=== PATIENT | male | born 1970 | race Caucasian/White ===

== ENCOUNTER 2017-12-30 23:10 | Emergency (ER) | payer SELFPAY ==
[2017-12-30] MEDS: LIDOCAINE 1%/EPI 1:100,000 20 ML VIAL. INJ (00:10)
[2017-12-31 00:04] LABS: ADD MAN DIFF? NO
[2017-12-31 00:05] LABS: BASO % 0 % (0-3); EOS % 0 % (0-3); HEMATOCRIT 42.2 % (39.0-53.0); HEMOGLOBIN 14.6 g/dL (13.0-17.5); LYMPH # 2.9 x10^3/uL (1.0-4.8); LYMPH % 18 % (24-48); MEAN CORPUSCULAR HEMOGLOBIN 31 pg (25-35); MEAN CORPUSCULAR HGB CONC 35 g/dL (31-37); MEAN CORPUSCULAR VOLUME 90 fL (79-100); MONO % 6 % (0-9); NEUT # 12.4 x10^3uL (1.8-7.7); NEUT % 76 % (31-73); PLATELET COUNT 323 x10^3/uL (140-400); RED BLOOD COUNT 4.71 x10^6/uL (4.30-5.70); RED CELL DISTRIBUTION WIDTH 13.5 % (11.5-14.5); WHITE BLOOD COUNT 16.4 x10^3/uL (4.0-11.0)
[2017-12-31] MEDS: CLINDAMYCIN 900MG PREMIX 50 ML IV (00:05)
[2017-12-31] MEDS: fentaNYL PF VIAL 100 MCG/2 ML VIAL IV (00:05)
[2017-12-31 00:14] LABS: ANION GAP 9 (6-14); BLOOD UREA NITROGEN 22 mg/dL (8-26); BUN/CREATININE RATIO 18 (6-20); CALCIUM 8.8 mg/dL (8.5-10.1); CARBON DIOXIDE 29 mmol/L (21-32); CHLORIDE 100 mmol/L (98-107); CREATININE 1.2 mg/dL (0.7-1.3); GFR 65.5; GLUCOSE 118 mg/dL (70-99); POTASSIUM 3.8 mmol/L (3.5-5.1); SODIUM 138 mmol/L (136-145)
[2017-12-31 00:19] LABS: ALBUMIN 3.4 g/dL (3.4-5.0); ALBUMIN/GLOBULIN RATIO 0.8 (1.0-1.7); ALK PHOS 71 U/L (46-116); ALT (SGPT) 29 U/L (16-63); AST (SGOT) 20 U/L (15-37); TOTAL BILIRUBIN 0.5 mg/dL (0.2-1.0); TOTAL PROTEIN 7.5 g/dL (6.4-8.2)
[2017-12-31 00:22] LABS: LACTIC ACID 1.2 mmol/L (0.4-2.0)
== END 2017-12-31 00:58 | disposition home or self-care (01) ==
LOC: ER 12-31 00:58
DX: L03.113 Cellulitis of right upper limb (principal)
CPT/HCPCS: 10060; 36415; 80053; 83605; 85025; 87071; 87075; 96365; 96375; 99284-25; J3010; J3490

== ENCOUNTER 2019-08-19 10:08 | Emergency (ER) | payer SELFPAY ==
[~2019-08-19] VITALS: Ht 154.9 cm; Wt 68.6 kg
[~2019-08-19 10:08] MED LIST: CEPH-264 PO; HYDR-3164 PO; SULF1TAB24 PO
[2019-08-19] MEDS ORDERED: IV NORMAL SALINE 1000ML BAG 1,000 ML IV ONE (11:15)
[2019-08-19 11:24] LABS: BILIRUBIN,URINE SMALL (NEG); CLARITY,URINE CLEAR; COLOR,URINE AMBER; NITRITE,URINE NEGATIVE (NEG); PROTEIN,URINE NEGATIVE (NEG-TRACE)
--- NOTE | 2019-08-19 11:25 | PHYS DOC ---
Past Medical History Past Medical History: No Pertinent History Past Surgical History: No Surgical History Smoking Status: Never Smoker Alcohol Use: Occasionally Drug Use: None Adult General Chief Complaint Chief Complaint: ABDOMINAL PAIN HPI HPI Patient is a 48 year old male who presents with states he has had a lump that comes in and out in his right groin. He states it mostly comes out or hurt him when he isn't moving. He states sometimes when he eats it also hurts. Patient rates his pain a 5 out of 10. 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 He states is been there for a year but feels like it is getting bigger and more painful. Review of Systems Review of Systems GI:abdominal pain, denies nausea, vomiting, bloody stools or diarrhea [] All other systems were reviewed and found to be within normal limits, except as documented in this note. Current Medications Current Medications Current Medications Medications (Trade) Dose Ordered Sig/Jaylyn Start Time Stop Time Status Last Admin Dose Admin Info (CONTRAST GIVEN -- Rx MONITORING) 1 each PRN DAILY PRN 08/19/19 12:15 08/21/19 12:14 Iohexol (Omnipaque 300 Mg/ml) 75 ml 1X ONCE 08/19/19 12:15 08/19/19 12:16 DC 08/19/19 12:10 75 ML Sodium Chloride 1,000 ml @ 1,000 mls/hr 1X ONCE 08/19/19 11:15 08/19/19 12:14 DC 08/19/19 11:36 1,000 MLS/HR Allergies Allergies Allergies Coded Allergies Type Severity Reaction Last Updated Verified No Known Drug Allergies 12/30/17 No Physical Exam Physical Exam Constitutional: Well developed, well nourished, no acute distress, non-toxic appearance. [] HENT: Normocephalic, atraumatic, bilateral external ears normal, oropharynx m oist, no oral exudates, nose normal. [] Eyes: PERRLA, EOMI, conjunctiva normal, no discharge. [] Neck: Normal range of motion, no tenderness, supple, no stridor. [] Cardiovascular:Heart rate regular rhythm, no murmur [] Lungs & Thorax: Bilateral breath sounds clear to auscultation [] Abdomen: Bowel sounds normal, soft, no tenderness, no masses, no pulsatile masses. [] Skin: Warm, dry, no erythema, no rash. [] Back: No tenderness, no CVA tenderness. [] Extremities: No tenderness, no cyanosis, no clubbing, ROM intact, no edema. [] Neurologic: Alert and oriented X 3, normal motor function, normal sensory function, no focal deficits noted. [] Psychologic: Affect normal, judgement normal, mood normal. Normal Physical Exam[] Current Patient Data Vital Signs Vital Signs Date Time Temp Pulse Resp B/P (MAP) Pulse Ox O2 Delivery O2 Flow Rate FiO2 08/19/19 11:24 97.5 82 16 143/91 (108) 98 Room Air 97.5 Lab Values Laboratory Tests Test 08/19/19 11:10 08/19/19 11:29 Urine Collection Type Unknown Urine Color [place] Urine Clarity Clear Urine pH 5.0 Urine Specific [place] >=1.030 Urine Protein Negative mg/dL (NEG-TRACE) Urine Glucose (UA) Negative mg/dL (NEG) Urine Ketones (Stick) Negative mg/dL (NEG) Urine Blood Negative (NEG) Urine Nitrite Negative (NEG) Urine Bilirubin Small (NEG) Urine Urobilinogen Dipstick 1.0 mg/dL (0.2 mg/dL) Urine Leukocyte Esterase Negative (NEG) Urine RBC 0 /HPF (0-2) Urine WBC 1-4 /HPF (0-4) Urine Squamous Epithelial Cells Few /LPF Urine Bacteria 0 /HPF (0-FEW) Urine Mucus Mod /LPF White Blood Count 4.8 x10^3/uL (4.0-11.0) Red Blood Count 4.79 x10^6/uL (4.30-5.70) Hemoglobin 14.7 g/dL (13.0-17.5) Hematocrit 42.5 % (39.0-53.0) Mean Corpuscular Volume 89 fL (79-100) Mean Corpuscular Hemoglobin 31 pg (25-35) Mean Corpuscular Hemoglobin Concent 35 g/dL (31-37) Red Cell Distribution Width 13.9 % (11.5-14.5) Platelet Count 236 x10^3/uL (140-400) Neutrophils (%) (Auto) 60 % (31-73) Lymphocytes (%) (Auto) 31 % (24-48) Monocytes (%) (Auto) 7 % (0-9) Eosinophils (%) (Auto) 1 % (0-3) Basophils (%) (Auto) 1 % (0-3) Neutrophils # (Auto) 2.9 x10^3/uL (1.8-7.7) Lymphocytes # (Auto) 1.5 x10^3/uL (1.0-4.8) Monocytes # (Auto) 0.3 x10^3/uL (0.0-1.1) Eosinophils # (Auto) 0.1 x10^3/uL (0.0-0.7) Basophils # (Auto) 0.0 x10^3/uL (0.0-0.2) Sodium Level 141 mmol/L (136-145) Potassium Level 3.4 mmol/L (3.5-5.1) L Chloride Level 104 mmol/L (98-107) Carbon Dioxide Level 26 mmol/L (21-32) Anion Gap 11 (6-14) Blood Urea Nitrogen 18 mg/dL (8-26) Creatinine 0.9 mg/dL (0.7-1.3) Estimated GFR (Cockcroft-Gault) 90.8 BUN/Creatinine Ratio 20 (6-20) Glucose Level 91 mg/dL (70-99) Calcium Level 8.5 mg/dL (8.5-10.1) Total Bilirubin 0.7 mg/dL (0.2-1.0) Aspartate Amino Transferase (AST) 26 U/L (15-37) Alanine Aminotransferase (ALT) 28 U/L (16-63) Alkaline Phosphatase 63 U/L (46-116) Total Protein 7.3 g/dL (6.4-8.2) Albumin 3.8 g/dL (3.4-5.0) Albumin/Globulin Ratio 1.1 (1.0-1.7) Lipase 79 U/L (73-393) Laboratory Tests 08/19/19 11:29 Laboratory Tests 08/19/19 11:29 EKG EKG [] Radiology/Procedures Radiology/Procedures [] Impressions: [facility] [address] [place], [place] [id number] IMAGING REPORT Signed PATIENT: ALONSO JORDAN ACCOUNT: [id number] : 1970 LOCATION: ER AGE: 48 SEX: M EXAM STATUS: REG ER ORD. PHYSICIAN: CLEMENCIA WILLINGHAM APRN REASON: LUMP IN RIGHT LOWER ABD/ GROIN PROCEDURE: CT ABD PELV W/ IV CONTRST ONLY CT study of the abdomen and pelvis with contrast Clinical indications: Lump in the right lower quadrant of the abdomen/groin. TECHNIQUE: After IV infusion of 75 cc of Omnipaque 300, helical CT scanning of the abdomen and pelvis was performed. No GI contrast was administered. This may decrease the sensitivity to detect GI tract pathology. PQRS compliance Statement One or more of the following individualized dose reduction techniques were utilized for this study: 1. Automated exposure control 2. Adjustment of the mA and/or kV according to patient size 3. Use of iterative reconstruction technique COMPARISON: None available. FINDINGS: The liver and spleen and pancreas are normal. The spleen measures 12.6 cm in length. The gallbladder is normal and no extrahepatic biliary ductal dilatation is seen. No adrenal mass is evident. Both kidneys are normal and no hydronephrosis or renal mass or perinephric fluid collection or hydroureter is seen. Urinary bladder is not abnormally distended. No focal aneurysmal dilatation of the abdominal aorta is seen. No enlarged abdominal or pelvic lymphadenopathy is seen. The appendix is normal. The terminal ileum is unremarkable. No obstructive bowel pattern is evident. No free air or free fluid or mesenteric edema is seen. No lung base consolidation is evident. There is a moderate diffuse disc protrusion at L4-5 more prominent on the right side. No lytic process is seen. No anterior abdominal wall or inguinal hernia is seen. No soft tissue mass is seen. IMPRESSION: No acute abnormality of the abdomen or pelvis. Moderate diffuse disc protrusion at L4-5 more prominent on the right side. Electronically signed by: Kevin Garcia MD (08/19/2019 12:53 PM) [id number] DICTATED and SIGNED BY: KEVIN GARCIA MD DATE: 08/19/19 1253 Course & Med Decision Making Course & Med Decision Making Pertinent Labs and Imaging studies reviewed. (See chart for details) Upon examination there is no lumps seen or felt and no tenderness with palpation to the right groin. Abdomen is soft and nontender. Patient denies dysuria symptoms. He states he had one bout of diarrhea last night but denies having constipation or diarrhea frequently. Patient denies nausea or vomiting, numbness or tingling, chest pain, shortness of air, fever, back pain, dizziness, headache. Alert and oriented. Ambulatory with a steady gait. Skin pink warm and dry. Speaks in full clear sentences. Denies testicular pain. Exam: Scrotum: Normal Hernia: None Testes/Epid: Non-tender w/ normal lie Cremaster: Reflex intact Lymph: No inguinal lymphadenopathy Discharge: None Dragon Disclaimer Dragon Disclaimer This electronic medical record was generated, in whole or in part, using a voice recognition dictation system. Departure Departure Impression: Primary Impression: Groin pain, chronic, right Disposition: HOME, SELF-CARE Condition: STABLE Referrals: NO PCP (PCP) INOCENCIO MARTINEZ MD Patient Instructions: Hernia Additional Instructions: Follow up with Dr Martinez. Try to stay away from heavy lifting if possible. Scripts Hydrocodone/Apap 5-325 (NORCO 5-325 TABLET) 1 Each Tablet 1 TAB PO PRN Q6HRS PRN for PAIN, #10 TAB 0 Refills Prov: CLEMENCIA WILLINGHAM APRN 08/19/19 CLEMENCIA WILLINGHAM APRN Aug 19, 2019 11:25
[2019-08-19 11:39] LABS: RBC,URINE 0 /HPF (0-2)
[2019-08-19 11:40] LABS: BACTERIA,URINE 0 /HPF (0-FEW); SQUAMOUS EPITHELIAL CELL,UR FEW /LPF
[2019-08-19 11:42] LABS: BASO % 1 % (0-3); EOS # 0.1 x10^3/uL (0.0-0.7); EOS % 1 % (0-3); HEMATOCRIT 42.5 % (39.0-53.0); HEMOGLOBIN 14.7 g/dL (13.0-17.5); LYMPH # 1.5 x10^3/uL (1.0-4.8); LYMPH % 31 % (24-48); MEAN CORPUSCULAR HEMOGLOBIN 31 pg (25-35); MEAN CORPUSCULAR HGB CONC 35 g/dL (31-37); MEAN CORPUSCULAR VOLUME 89 fL (79-100); MONO # 0.3 x10^3/uL (0.0-1.1); MONO % 7 % (0-9); NEUT # 2.9 x10^3/uL (1.8-7.7); NEUT % 60 % (31-73); PLATELET COUNT 236 x10^3/uL (140-400); RED BLOOD COUNT 4.79 x10^6/uL (4.30-5.70); RED CELL DISTRIBUTION WIDTH 13.9 % (11.5-14.5); WHITE BLOOD COUNT 4.8 x10^3/uL (4.0-11.0)
[2019-08-19 11:53] LABS: CALCIUM 8.5 mg/dL (8.5-10.1); CREATININE 0.9 mg/dL (0.7-1.3); GFR 90.8; POTASSIUM 3.4 mmol/L (3.5-5.1)
[2019-08-19 11:59] LABS: ALBUMIN 3.8 g/dL (3.4-5.0); ALBUMIN/GLOBULIN RATIO 1.1 (1.0-1.7); TOTAL BILIRUBIN 0.7 mg/dL (0.2-1.0); TOTAL PROTEIN 7.3 g/dL (6.4-8.2)
[2019-08-19] MEDS ORDERED: IOHEXOL 300 MG/ML 100ML VIAL. IV ONE (12:15)
[2019-08-19] MEDS ORDERED: CONTRAST GIVEN. MC PRN (12:15)
--- NOTE | 2019-08-19 12:55 | RAD ---
CT study of the abdomen and pelvis with contrast Clinical indications: Lump in the right lower quadrant of the abdomen/groin. TECHNIQUE: After IV infusion of 75 cc of Omnipaque 300, helical CT scanning of the abdomen and pelvis was performed. No GI contrast was administered. This may decrease the sensitivity to detect GI tract pathology. PQRS compliance Statement One or more of the following individualized dose reduction techniques were utilized for this study: 1. Automated exposure control 2. Adjustment of the mA and/or kV according to patient size 3. Use of iterative reconstruction technique COMPARISON: None available. FINDINGS: The liver and spleen and pancreas are normal. The spleen measures 12.6 cm in length. The gallbladder is normal and no extrahepatic biliary ductal dilatation is seen. No adrenal mass is evident. Both kidneys are normal and no hydronephrosis or renal mass or perinephric fluid collection or hydroureter is seen. Urinary bladder is not abnormally distended. No focal aneurysmal dilatation of the abdominal aorta is seen. No enlarged abdominal or pelvic lymphadenopathy is seen. The appendix is normal. The terminal ileum is unremarkable. No obstructive bowel pattern is evident. No free air or free fluid or mesenteric edema is seen. No lung base consolidation is evident. There is a moderate diffuse disc protrusion at L4-5 more prominent on the right side. No lytic process is seen. No anterior abdominal wall or inguinal hernia is seen. No soft tissue mass is seen. IMPRESSION: No acute abnormality of the abdomen or pelvis. Moderate diffuse disc protrusion at L4-5 more prominent on the right side. Electronically signed by: Aguila Garcia MD (08/19/2019 12:53 PM) [id number]
[2019-08-19] MEDS ORDERED: HYDR-3164 PO (13:10)
[2019-08-19 13:13] VITALS: BP 129/87
== END 2019-08-19 13:27 | disposition home or self-care (01) ==
LOC: ER 10:08
DX: G89.29 Other chronic pain (principal); R10.31 Right lower quadrant pain
CPT/HCPCS: 36415; 74177; 80053; 81001; 83690; 85025; 99285; J7030; Q9967

== ENCOUNTER 2019-09-02 15:47 | Emergency (ER) | payer SELFPAY ==
[~2019-09-02] VITALS: Ht 177.8 cm; Wt 68.1 kg
[2019-09-02] MEDS ORDERED: ACETAMINOPHEN 500 MG TABLET PO ONE (17:15)
[2019-09-02] MEDS ORDERED: FAMOTIDINE 20 MG/2 ML VIAL IVP ONE (17:15)
[2019-09-02] MEDS ORDERED: KETOROLAC 30 MG/ML VIAL. IVP ONE (17:15)
[2019-09-02] MEDS ORDERED: IV NORMAL SALINE 1000ML BAG 1,000 ML IV ONE (17:15)
[2019-09-02 17:19] LABS: BILIRUBIN,URINE NEGATIVE (NEG); CLARITY,URINE CLEAR; COLOR,URINE YELLOW; NITRITE,URINE NEGATIVE (NEG); PROTEIN,URINE 30 mg/dL (NEG-TRACE)
[2019-09-02 17:25] LABS: BARBITURATES NEG (NEG); BENZODIAZEPINES NEG (NEG); CANNABINOIDS NEG (NEG); COCAINE POS (NEG); METHADONE NEG (NEG); OPIATES NEG (NEG); PHENCYCLIDINE NEG (NEG)
[2019-09-02 17:26] LABS: AMPHETAMINE/METHAMPHETAMINE NEG (NEG)
--- NOTE | 2019-09-02 17:26 | PHYS DOC ---
Past Medical History Past Medical History: No Pertinent History, Other (inguinal hernia right) Past Surgical History: No Surgical History Smoking Status: Never Smoker Alcohol Use: Occasionally Drug Use: None Adult General Chief Complaint Chief Complaint: WEAKNESS/GENERALIZED HPI HPI Patient is a 49 year old male with history of right inguinal hernia who presents to the ED today complaining of generalized weakness, dysuria, decreased urine output, and mild epigastric abdominal pain, symptoms began Thursday this week. denies any nausea vomiting. Denies any chest pain or shortness of breath. Patient was seen in the ED 2 weeks ago for the inguinal hernia, he reports the prescription for pain medicine he was given was lost as well as the follow-up information. Review of Systems Review of Systems Constitutional: Reports generalized weakness. Denies fever or chills [] Eyes: Denies change in visual acuity, redness, or eye pain [] HENT: Denies nasal congestion or sore throat [] Respiratory: Denies cough or shortness of breath [] Cardiovascular: No additional information not addressed in HPI [] GI: Reports epigastric abdominal pain, denies nausea, vomiting, bloody stools or diarrhea [] : Reports dysuria and decreased urine output, denies hematuria [] Musculoskeletal: Denies back pain or joint pain [] Integument: Denies rash or skin lesions [] Neurologic: Denies headache, focal weakness or sensory changes [] All other systems were reviewed and found to be within normal limits, except as documented in this note. Current Medications Current Medications Current Medications Medications (Trade) Dose Ordered Sig/[facility] Start Time Stop Time Status Last Admin Dose Admin Acetaminophen (Tylenol) 1,000 mg 1X ONCE 09/02/19 17:15 09/02/19 17:16 DC 09/02/19 17:42 1,000 MG Aspirin (Dalila Aspirin) 325 mg 1X ONCE 09/02/19 18:15 09/02/19 18:16 09/02/19 18:09 325 MG Azithromycin (Zithromax) 1,000 mg 1X ONCE 09/02/19 17:45 09/02/19 17:46 DC 09/02/19 17:54 1,000 MG Ceftriaxone Sodium (Rocephin) 1 gm 1X ONCE 09/02/19 17:45 09/02/19 17:46 DC 09/02/19 17:55 1 GM Famotidine (Pepcid Vial) 20 mg 1X ONCE 09/02/19 17:15 09/02/19 17:16 DC 09/02/19 17:42 20 MG Ketorolac Tromethamine (Toradol 30mg Vial) 30 mg 1X ONCE 09/02/19 17:15 09/02/19 17:16 DC 09/02/19 17:41 30 MG Sodium Chloride 1,000 ml @ 1,000 mls/hr 1X ONCE 09/02/19 17:15 09/02/19 18:14 09/02/19 17:41 1,000 MLS/HR Allergies Allergies Allergies Coded Allergies Type Severity Reaction Last Updated Verified No Known Drug Allergies 12/30/17 No Physical Exam Physical Exam Constitutional: Well developed, well nourished, no acute distress, non-toxic ap pearance. [] HENT: Normocephalic, atraumatic, bilateral external ears normal, oropharynx moist, no oral exudates, nose normal. [] Eyes: PERRLA, EOMI, conjunctiva normal, no discharge. [] Neck: Normal range of motion, no tenderness, supple, no stridor. [] Cardiovascular:Heart rate regular rhythm, no murmur [] Lungs & Thorax: Bilateral breath sounds clear to auscultation [] Abdomen: Bowel sounds normal, soft, no tenderness, no masses, no pulsatile masses. [] Skin: Warm, dry, no erythema, no rash. [] Back: No tenderness, no CVA tenderness. [] Extremities: No tenderness, no cyanosis, no clubbing, ROM intact, no edema. [] Neurologic: Alert and oriented X 3, normal motor function, normal sensory function, no focal deficits noted. Cranial nerves II through XII intact Psychologic: Affect normal, judgement normal, mood normal. [] Current Patient Data Vital Signs Vital Signs Date Time Temp Pulse Resp B/P (MAP) Pulse Ox O2 Delivery O2 Flow Rate FiO2 09/02/19 17:09 98.7 98 16 141/81 (101) 97 Room Air 98.7 Lab Values Laboratory Tests Test 09/02/19 17:11 09/02/19 17:28 Urine Collection Type Unknown Urine Color Yellow Urine Clarity Clear Urine pH 5.0 Urine Specific [place] 1.020 Urine Protein 30 mg/dL (NEG-TRACE) Urine Glucose (UA) Negative mg/dL (NEG) Urine Ketones (Stick) Negative mg/dL (NEG) Urine Blood Small (NEG) Urine Nitrite Negative (NEG) Urine Bilirubin Negative (NEG) Urine Urobilinogen Dipstick 1.0 mg/dL (0.2 mg/dL) Urine Leukocyte Esterase Moderate (NEG) Urine RBC Occ /HPF (0-2) Urine WBC 11-20 /HPF (0-4) Urine Squamous Epithelial Cells Occ /LPF Urine Bacteria Moderate /HPF (0-FEW) Urine Mucus Mod /LPF Urine Opiates Screen Neg (NEG) Urine Methadone Screen Neg (NEG) Urine Barbiturates Neg (NEG) Urine Phencyclidine Screen Neg (NEG) Urine Amphetamine/Methamphetamine Neg (NEG) Urine Benzodiazepines Screen Neg (NEG) Urine Cocaine Screen Pos (NEG) Urine Cannabinoids Screen Neg (NEG) Urine Ethyl Alcohol Neg (NEG) White Blood Count 11.1 x10^3/uL (4.0-11.0) H Red Blood Count 4.20 x10^6/uL (4.30-5.70) L Hemoglobin 13.1 g/dL (13.0-17.5) Hematocrit 36.8 % (39.0-53.0) L Mean Corpuscular Volume 88 fL (79-100) Mean Corpuscular Hemoglobin 31 pg (25-35) Mean Corpuscular Hemoglobin Concent 36 g/dL (31-37) Red Cell Distribution Width 13.6 % (11.5-14.5) Platelet Count 205 x10^3/uL (140-400) Neutrophils (%) (Auto) 86 % (31-73) H Lymphocytes (%) (Auto) 7 % (24-48) L Monocytes (%) (Auto) 7 % (0-9) Eosinophils (%) (Auto) 0 % (0-3) Basophils (%) (Auto) 0 % (0-3) Neutrophils # (Auto) 9.5 x10^3/uL (1.8-7.7) H Lymphocytes # (Auto) 0.8 x10^3/uL (1.0-4.8) L Monocytes # (Auto) 0.8 x10^3/uL (0.0-1.1) Eosinophils # (Auto) 0.0 x10^3/uL (0.0-0.7) Basophils # (Auto) 0.0 x10^3/uL (0.0-0.2) Segmented Neutrophils % 83 % (35-66) H Band Neutrophils % 7 % (0-9) Lymphocytes % 4 % (24-48) L Monocytes % 5 % (0-10) Basophils % 1 % (0-3) Platelet Estimate Adequate (ADEQUATE) Sodium Level 132 mmol/L (136-145) L Potassium Level 3.9 mmol/L (3.5-5.1) Chloride Level 98 mmol/L (98-107) Carbon Dioxide Level 24 mmol/L (21-32) Anion Gap 10 (6-14) Blood Urea Nitrogen 18 mg/dL (8-26) Creatinine 1.2 mg/dL (0.7-1.3) Estimated GFR (Cockcroft-Gault) 64.9 BUN/Creatinine Ratio 15 (6-20) Glucose Level 125 mg/dL (70-99) H Calcium Level 8.4 mg/dL (8.5-10.1) L Magnesium Level 1.6 mg/dL (1.8-2.4) L Total Bilirubin 0.8 mg/dL (0.2-1.0) Aspartate Amino Transferase (AST) 42 U/L (15-37) H Alanine Aminotransferase (ALT) 58 U/L (16-63) Alkaline Phosphatase 99 U/L (46-116) Creatine Kinase 181 U/L (39-308) Troponin I Quantitative 0.068 ng/mL (0.000-0.055) WV-Lgz-V-Type Natriuretic Peptide 279 pg/mL (0-124) H Total Protein 6.8 g/dL (6.4-8.2) Albumin 3.4 g/dL (3.4-5.0) Albumin/Globulin Ratio 1.0 (1.0-1.7) Lipase 101 U/L (73-393) Influenza Type A Antigen Negative (NEGATIVE) Influenza Type B Antigen Negative (NEGATIVE) Laboratory Tests 09/02/19 17:28 Laboratory Tests 09/02/19 17:28 EKG EKG [address] Ni sinus rhythm HR 96 no STEMI[] Radiology/Procedures Radiology/Procedures []PROCEDURE: PORTABLE CHEST 1V INDICATION: Weakness COMPARISON: None. FINDINGS: Single view of chest obtained. Hypoexpanded examination without focal airspace consolidation. Cardiac silhouette upper limits of normal in size and likely exaggerated by portable technique. IMPRESSION: * Hypoexpanded exam without focal airspace consolidation. Electronically signed by: Aris Amador MD (09/02/2019 5:23 PM) [facility] [place] DICTATED and SIGNED BY: ARIS AMADOR MD DATE: 09/02/191722 Course & Med Decision Making Course & Med Decision Making Pertinent Labs and Imaging studies reviewed. (See chart for details) This is a 49-year-old male patient presenting to the ED today with multiple met astases including generalized weakness, decreased urine normal, epigastric abdominal pain, symptoms began 4 days ago. Urine noted for moderate amount of leukocytes, patient was given Rocephin, azithromycin to cover him for possible STD. Also discharged on Cipro. CBC with a WBC of 11.1, CMP with sodium of 132, magnesium 1.6. Troponin 0.068, EKG is negative, patient has no chest pain. Negative influenza A or B. UDS noted for cocaine Patient was given aspirin the ED. Informed patient he will have to be admitted for this elevated troponin-patient stated he has things to do this no way he can be in the hospital. He signed out AMA. I spoke to patient about leaving AMA. He was given the risk of leaving AMA including and or disability. Patient is alert and oriented 4 able to make his own decisions. He left AGAINST MEDICAL ADVICE. Dragon Disclaimer Dragon Disclaimer This electronic medical record was generated, in whole or in part, using a voice recognition dictation system. Departure Departure Impression: Primary Impression: Urinary tract infection Additional Impressions: Generalized weakness Elevated troponin Cocaine abuse Disposition: 07 AGAINST MEDICAL ADVICE Condition: STABLE Referrals: NO PCP (PCP) Follow-up with your doctor in 1-2 weeks Patient Instructions: Cocaine Abuse-Brief, Urinary Tract Infection, Weakness, [id number] Scripts Ciprofloxacin Hcl (CIPRO) 500 Mg Tablet 1 TAB PO BID for 10 Days, #20 TAB 0 Refills Prov: VANDANA GARZA APRN 09/02/19 Problem Qualifiers Primary Impression: Urinary tract infection Urinary tract infection type: site unspecified Hematuria presence: without hematuria Qualified Codes: N39.0 - Urinary tract infection, site not specified VANDANA GARZA APRN Sep 02, 2019 17:26
[2019-09-02 17:36] LABS: BASO % 0 % (0-3); EOS % 0 % (0-3); HEMATOCRIT 36.8 % (39.0-53.0); HEMOGLOBIN 13.1 g/dL (13.0-17.5); LYMPH # 0.8 x10^3/uL (1.0-4.8); LYMPH % 7 % (24-48); MEAN CORPUSCULAR HEMOGLOBIN 31 pg (25-35); MEAN CORPUSCULAR HGB CONC 36 g/dL (31-37); MEAN CORPUSCULAR VOLUME 88 fL (79-100); MONO # 0.8 x10^3/uL (0.0-1.1); MONO % 7 % (0-9); NEUT # 9.5 x10^3/uL (1.8-7.7); NEUT % 86 % (31-73); PLATELET COUNT 205 x10^3/uL (140-400); RED CELL DISTRIBUTION WIDTH 13.6 % (11.5-14.5); WHITE BLOOD COUNT 11.1 x10^3/uL (4.0-11.0)
[2019-09-02 17:36] LABS: RBC,URINE OCC /HPF (0-2)
[2019-09-02 17:37] LABS: SQUAMOUS EPITHELIAL CELL,UR OCC /LPF
[2019-09-02 17:38] LABS: BACTERIA,URINE MODERATE /HPF (0-FEW)
[2019-09-02] MEDS ORDERED: cefTRIAXone IV Push 1 GM VIAL. IVP ONE (17:45)
[2019-09-02] MEDS ORDERED: AZITHROMYCIN 250 MG TABLET. PO ONE (17:45)
[2019-09-02 17:47] LABS: CALCIUM 8.4 mg/dL (8.5-10.1); CREATININE 1.2 mg/dL (0.7-1.3); GFR 64.9; POTASSIUM 3.9 mmol/L (3.5-5.1)
[2019-09-02 17:52] LABS: % BANDS 7 % (0-9); % BASOS 1 % (0-3); % LYMPHS 4 % (24-48); % MONOS 5 % (0-10); % SEGS 83 % (35-66); PLT ESTIMATE ADEQUATE (ADEQUATE)
[2019-09-02 17:53] LABS: ALBUMIN 3.4 g/dL (3.4-5.0); MAGNESIUM 1.6 mg/dL (1.8-2.4); TOTAL BILIRUBIN 0.8 mg/dL (0.2-1.0); TOTAL PROTEIN 6.8 g/dL (6.4-8.2)
[2019-09-02 18:00] VITALS: BP 117/69
[2019-09-02 18:07] LABS: INFLUENZA A PATIENT NEGATIVE (NEGATIVE); INFLUENZA B PATIENT NEGATIVE (NEGATIVE)
[2019-09-02] MEDS ORDERED: ASPIRIN 325 MG TABLET PO ONE (18:15)
[2019-09-02] MEDS ORDERED: CIPR500T94 PO (18:18)
--- NOTE | 2019-09-03 21:51 | EKG ---
[facility] [address] [place] [id number] Test Date: 2019-09-02 Test Time: 17:17:07 Pat Name: ALONSO JORDAN Department: Room: Gender: M Technician Automatic: : 1970 Requested By: VANDANA GARZA Order Number: [id number] Reading MD: Measurements Intervals [place] Rate: 96 P: 56 IL: 134 QRS: 48 QRSD: 90 T: 17 QT: 304 QTc: 390 Interpretive Statements SINUS RHYTHM ATRIAL PREMATURE COMPLEX(ES) QRS(T) CONTOUR ABNORMALITY CONSIDER ANTEROSEPTAL MYOCARDIAL DAMAGE POSSIBLY ABNORMAL ECG RI6.01 No previous ECG available for comparison
== END 2019-09-02 18:50 | disposition left against medical advice (07) ==
LOC: ER 15:47
DX: N39.0 Urinary tract infection, site not specified (principal); R53.1 Weakness; R79.89 Other specified abnormal findings of blood chemistry; F12.10 Cannabis abuse, uncomplicated; R10.13 Epigastric pain
CPT/HCPCS: 36415; 71045; 80053; 80307; 81001; 82550; 83690; 83735; 83880; 84484; 85007; 85025; 87086; 87804; 93005; 96374; 96375; 99285; J0696; J1885; J3490; J7030; 99284